=== PATIENT | male | born 1985 | race Caucasian/White ===

== ENCOUNTER 2016-08-01 10:45 | Emergency (ER) | payer OTHER ==
[~2016-08-01] VITALS: Ht 162.6 cm; Wt 72.0 kg
[2016-08-01 10:50] VITALS: TEMP 36.8; Ht 162.6 cm; Wt 72.0 kg
[2016-08-01 12:16] LABS: BASO % 0.2 %; BASO ABS # 0.02 K/uL (0-0.2); COMPLETE YES; EOS % 2.9 %; HEMATOCRIT 44.2 % (42-52); IG% 0.2 %; LYMPH % 18.2 %; LYMPH ABS # 1.64 K/uL (1.2-3.4); MEAN CELL VOLUME 92.9 fL (80-100); MEAN CORPUSCULAR HEMOGLOBIN 32.1 pg (25-34); MEAN CORPUSCULAR HGB CONC 34.6 g/dl (32-36); MEAN PLATELET VOLUME 10.3 fL (7.4-10.4); MONO % 5.4 %; NEUT % 73.1 %; PLATELET COUNT 184 K/uL (130-400); RED BLOOD COUNT 4.76 M/uL (4.7-6.1); WHITE BLOOD COUNT 9.02 K/uL (4.8-10.8)
[2016-08-01] MEDS ORDERED: GI COCKTAIL PO STA (12:39)
[2016-08-01] MEDS ORDERED: SUCRALFATE 1 GM TAB PO STA (12:39)
[2016-08-01] MEDS ORDERED: SODIUM CHLORIDE 0.9% 1000ML 1,000 ML IV STA (12:39)
[2016-08-01] MEDS ORDERED: FAMOTIDINE 20 MG TAB PO STA (12:39)
--- NOTE | 2016-08-01 12:40 | EMERGENCY ROOM VISIT NOTE ---
History Report prepared by Pk: Julito Lundberg Under the Supervision of: Dr. David Odonnell M.D. First contact with patient: 12:19 Chief Complaint: ABDOMINAL PAIN Stated Complaint: ABD PAIN Nursing Triage Summary: Patient to ED via ALS for abdominal pain, states "severe pain, it started up with dinner last night, couldn't finish eating." C/o epigastric pain with nausea, vomiting History of Present Illness The patient is a 30 year old male who presents to the Emergency Room with complaints of persistent epigastric abdominal pain since yesterday morning. The pain is described as a throbbing sensation. He also notes that he had an episode of hematemesis this morning. He is currently feeling nauseous. The patient denies eating anything out of the ordinary recently. He still has his gallbladder and appendix. Source of History: patient Onset: yesterday morning Position: abdomen (epigastric) Quality: other (throbbing) Timing: other (persistent) Associated Symptoms: + nausea, + vomiting (hematemesis) Review of Systems See HPI for pertinent positives & negatives. A total of 10 systems reviewed and were otherwise negative. Past Medical & Surgical Medical Problems: (1) No known health problems Family History No pertinent family history Social History Smoking Status: Current Every Day Smoker Housing Status: other ([place]) Occupation Status: other (incarcerated) Current/Historical Medications Scheduled Ondasetron Odt (Zofran Odt), 4 MG SL Q6H Pantoprazole Sodium (Protonix), 1 TAB PO DAILY Sucralfate (Carafate), 1 GM PO TID Allergies Coded Allergies: Penicillins (Unverified Allergy, Intermediate, UNKNOWN, 08/01/16) Physical Exam Vital Signs Date Time Temp Pulse Resp B/P Pulse Ox O2 Delivery O2 Flow Rate FiO2 08/01/16 14:48 77 18 117/68 97 08/01/16 13:48 68 08/01/16 12:36 88 16 109/66 96 Room Air 08/01/16 10:58 67 08/01/16 10:50 36.8 88 20 109/71 98 Room Air Physical Exam GENERAL: Patient is a healthy-appearing well-nourished HEAD: Normocephalic atraumatic EYES: Ocular movements intact pupils equal and react to light OROPHARYNX mucous membranes are moist no exudates present no erythema or edema present NECK: Supple no nuchal rigidity CHEST: Good equal expansion LUNGS: Clear and equal to auscultation CARDIAC: Normal S1 and S2 ABDOMEN: Soft, mild epigastric tenderness to palpation, no guarding BACK: No CVA tenderness EXTREMITIES: No pain upon palpation normal muscle strength in all groups no clubbing cyanosis or edema NEURO: Patient is following commands is answering questions appropriately. Alert and oriented x3 Cranial Nerves 2-12 grossly intact Medical Decision & Procedures ER Provider Diagnostic Interpretation: Radiology results as stated below per my review and radiologist interpretation: ABDOMEN AND PELVIS CT WITH IV CONTRAST CT DOSE: 419.16 mGycm HISTORY: Pain Pt c/o epigastric pain TECHNIQUE: Multiaxial CT images of the abdomen and pelvis were performed following the use of intravenous contrast. COMPARISON STUDY: None. FINDINGS: The lung bases are clear. The liver, spleen, gallbladder, pancreas, kidneys, and adrenal glands are within normal limits. No bowel wall thickening or obstruction. The pelvic organs are unremarkable. No suspicious lytic or blastic osseous lesions. IMPRESSION: No significant abnormality identified within the abdomen or pelvis. Electronically signed by: Yogi Young M.D. 08/01/2016 2:09 PM Dictated Date/Time: 08/01/2016 2:08 PM Laboratory Results 08/01/16 12:00 Red Blood Count 4.76, Mean Corpuscular Volume 92.9, Mean Corpuscular Hemoglobin 32.1, Mean Corpuscular Hemoglobin Concent 34.6, Mean Platelet Volume 10.3, Neutrophils (%) (Auto) 73.1, Lymphocytes (%) (Auto) 18.2, Monocytes (%) (Auto) 5.4, Eosinophils (%) (Auto) 2.9, Basophils (%) (Auto) 0.2, Neutrophils # (Auto) 6.59, Lymphocytes # (Auto) 1.64, Monocytes # (Auto) 0.49, Eosinophils # (Auto) 0.26, Basophils # (Auto) 0.02 08/01/16 12:00 Test 08/01/16 12:00 White Blood Count 9.02 K/uL (4.8-10.8) Red Blood Count 4.76 M/uL (4.7-6.1) Hemoglobin 15.3 g/dL (14.0-18.0) Hematocrit 44.2 % (42-52) Mean Corpuscular Volume 92.9 fL (80-100) Mean Corpuscular Hemoglobin 32.1 pg (25-34) Mean Corpuscular Hemoglobin Concent 34.6 g/dl (32-36) Platelet Count 184 K/uL (130-400) Mean Platelet Volume 10.3 fL (7.4-10.4) Neutrophils (%) (Auto) 73.1 % Lymphocytes (%) (Auto) 18.2 % Monocytes (%) (Auto) 5.4 % Eosinophils (%) (Auto) 2.9 % Basophils (%) (Auto) 0.2 % Neutrophils # (Auto) 6.59 K/uL (1.4-6.5) Lymphocytes # (Auto) 1.64 K/uL (1.2-3.4) Monocytes # (Auto) 0.49 K/uL (0.11-0.59) Eosinophils # (Auto) 0.26 K/uL (0-0.5) Basophils # (Auto) 0.02 K/uL (0-0.2) RDW Standard Deviation 41.5 fL (36.4-46.3) RDW Coefficient of Variation 12.2 % (11.5-14.5) Immature Granulocyte % (Auto) 0.2 % Immature Granulocyte # (Auto) 0.02 K/uL (0.00-0.02) Anion Gap 5.0 mmol/L (3-11) Est Creatinine Clear Calc Drug Dose 108.8 ml/min Estimated GFR () 130.7 Estimated GFR (Non- 112.8 BUN/Creatinine Ratio 15.7 (10-20) Calcium Level 9.2 mg/dl (8.5-10.1) Total Bilirubin 0.5 mg/dl (0.2-1) Aspartate Amino Transf (AST/SGOT) 20 U/L (15-37) Alanine Aminotransferase (ALT/SGPT) 27 U/L (12-78) Alkaline Phosphatase 68 U/L (45-117) Total Protein 8.1 gm/dl (6.4-8.2) Albumin 4.3 gm/dl (3.4-5.0) Globulin 3.8 gm/dl (2.5-4.0) Albumin/Globulin Ratio 1.1 (0.9-2) Lipase 83 U/L (73-393) Labs reviewed by ED physician. Medications Administered Medications (Trade) Dose Ordered Sig/Jasiel Route Start Time Stop Time Status Last Admin Dose Admin Sodium Chloride (Nss 1000ml) 1,000 ml @ 999 mls/hr Q1H1M STAT IV 08/01/16 12:39 08/01/16 13:39 DC 08/01/16 12:53 999 MLS/HR Famotidine (Pepcid Tab) 20 mg NOW STAT PO 08/01/16 12:39 08/01/16 12:41 DC 08/01/16 13:03 20 MG Sucralfate (Carafate Tab) 1 gm NOW STAT PO 08/01/16 12:39 08/01/16 12:41 DC 08/01/16 13:03 1 GM Lidocaine HCl (Viscous Lidocaine 2% Soln) 20 ml STK-MED ONCE .ROUTE 08/01/16 12:55 08/01/16 12:59 DC 08/01/16 13:03 20 ML Al Hydroxide/Mg Hydroxide (Maalox Susp) 30 ml STK-MED ONCE .ROUTE 08/01/16 12:55 08/01/16 12:59 DC 08/01/16 13:02 30 ML ED Course 1237: Past medical records reviewed. The patient was evaluated in room C10. A complete history and physical examination was performed. 1239: Sucralfate 1 gm PO, Pepcid 20 mg PO, GI Cocktail 24 ml PO, NSS 1000 ml @ 999 mls/hr. 1418: Updated the patient. Explained the findings to him. He understands and agrees with the treatment plan. The patient is ready for discharge. Medical Decision Differential diagnosis: Etiologies such as appendicitis, diverticulitis, PUD, biliary pathology, UTI, pancreatitis, obstruction, mesenteric ischemia, aortic pathology, infections, inflammatory bowel disease, renal colic, as well as others were entertained. This is a 30-year-old male who presents emergency department complaining of epigastric pain. The patient reportedly was unable to finish eating dinner last night. Serial abdominal examinations were performed of the patient in the emergency department and at no time did the patient exhibited a surgical abdomen. The patient was given a GI cocktail, Pepcid and Carafate in the emergency department. Repeat examination revealed improvement patient's symptoms. In addition the patient was also given normal saline bolus as well as Reglan. The patient has a normal white blood count normal renal profile normal liver profile normal lipase. CAT scan of the abdomen pelvis does not show any acute process. I will treat the patient as if he has a gastritis and started him on Protonix. He'll be given Carafate before meals. I also recommended a clear liquid diet for the next 48 hours as well as follow-up with gastroenterology. Patient and caretakers were in agreement with treatment plan. Impression Primary Impression: Epigastric pain Scribe Attestation The scribe's documentation has been prepared under my direction and personally reviewed by me in its entirety. I confirm that the note above accurately reflects all work, treatment, procedures, and medical decision making performed by me. Departure Information Dispostion Home / Self-Care Prescriptions Sucralfate (CARAFATE) 1 Gm Tab 1 GM PO TID for 10 Days, #30 TAB Prov: David Odonnell MD 08/01/16 Ondasetron Odt (ZOFRAN ODT) 4 Mg Tab 4 MG SL Q6H for Nausea, #6 TAB Prov: David Odonnell MD 08/01/16 Pantoprazole Sodium (PROTONIX) 40 Mg Tab 1 TAB PO DAILY for 30 Days, #30 TAB Prov: David Odonnell MD 08/01/16 Referrals Aram MOONEY (PCP) Forms HOME CARE DOCUMENTATION FORM, IMPORTANT VISIT INFORMATION, School Instructions, Work Instructions Patient Instructions ED Diet Clear Liquid, ED Epigastric Pain [facility], Gastritis Tx, My [facility] Additional Instructions Take Carafate CLear liquid diet next 48 hours You have been examined and treated today on an emergency basis only. This is not a substitute for, or an effort to provide, complete comprehensive medical care. It is impossible to recognize and treat all injuries or illnesses in a single emergency department visit. It is therefore important that you follow up closely with Dr Warner. Call as soon as possible for an appointment. Thank you for your time and consideration. I look forward to speaking with you again soon. Please don't hesitate to call us if you have any questions.
[2016-08-01 12:47] LABS: BUN/CREATININE RATIO 15.7 (10-20); CALCIUM 9.2 mg/dl (8.5-10.1); CREATININE 0.92 mg/dl (0.60-1.40); POTASSIUM 4.3 mmol/L (3.5-5.1)
[2016-08-01 12:49] LABS: ALB/GLOB RATIO 1.1 (0.9-2)
[2016-08-01] MEDS ORDERED: LIDOCAINE HCL 2% VISC SOLN 20 ML UDC ONE (12:55)
[2016-08-01] MEDS ORDERED: ALUMINUM/MAGNESIUM SUSP 30 ML UDC ONE (12:55)
[2016-08-01] MEDS ORDERED: OPTIRAY 320 IV PRN (13:00)
--- NOTE | 2016-08-01 14:10 | DIAGNOSTIC IMAGING REPORT ---
ABDOMEN AND PELVIS CT WITH IV CONTRAST CT DOSE: 419.16 mGycm HISTORY: Pain Pt c/o epigastric pain TECHNIQUE: Multiaxial CT images of the abdomen and pelvis were performed following the use of intravenous contrast. COMPARISON STUDY: None. FINDINGS: The lung bases are clear. The liver, spleen, gallbladder, pancreas, kidneys, and adrenal glands are within normal limits. No bowel wall thickening or obstruction. The pelvic organs are unremarkable. No suspicious lytic or blastic osseous lesions. IMPRESSION: No significant abnormality identified within the abdomen or pelvis. Electronically signed by: Yogi Young M.D. 08/01/2016 2:09 PM Dictated Date/Time: 08/01/2016 2:08 PM
[2016-08-01] MEDS ORDERED: PANT40TA PO (14:19)
[2016-08-01] MEDS ORDERED: ONDA4TAB10 SL (14:20)
[2016-08-01] MEDS ORDERED: SUCR1TAB29 PO (14:27)
[2016-08-01 14:48] VITALS: BP 117/68; PULSE 77; O2SAT 97
== END 2016-08-01 14:51 | disposition home or self-care (01) ==
LOC: C.EDC 10:47
DX: R10.13 Epigastric pain (principal); F17.200 Nicotine dependence, unspecified, uncomplicated; Z79.899 Other long term (current) drug therapy; Z88.0 Allergy status to penicillin